=== PATIENT | male | born 1935 | race Caucasian/White ===

== ENCOUNTER → 2016-10-11 | Outpatient (CLI) | payer OTHER ==
[~2016-10-11] MED LIST: ADULT LOW DOSE81 M1; ASPIR-LOW81 MG PO; ATORVASTATIN CA40 MG PO; CARBIDOPA/LEVO1 EACH PO; COENZYME Q-10 PO; CONSTULOSE10 GM/15 M PO; DONEPEZIL HCL10 MG PO; GLIPIZIDE-METF1 EAC1 PO; JANUVIA PO; LIPITOR PO; LOPRESSOR50 MG PO; MAGNESIUM400 M1 PO; MAGOX PO; METOPROLOL PO; MIRALAX17 GM PO; MOTRIN800 MG PO; NEXIUM40 MG; OSTEO BI-FLEX1 EAC1 PO; OSTEO BI-FLEX1 EAC3 PO; Q-SORB CO Q-10100 MG PO; RANITIDINE; RANITIDINE PO; RENATABS TABLE1 EACH; THERALITH XR T1 EACH PO; TOPROL XL50 MG; VIIBRYD PO; VITAMIN B-6100 MG PO; ZOLOFT50 MG PO
== END | disposition home or self-care (01) ==
DX: R13.12 Dysphagia, oropharyngeal phase (principal); K21.9 Gastro-esophageal reflux disease without esophagitis; G20 Parkinson's disease
CPT/HCPCS: 92611 GN; G8996 GN; G8997 GN; G8998 GN

== ENCOUNTER 2016-10-19 11:05 | Emergency (ER) | payer OTHER ==
[~2016-10-19] VITALS: Ht 177.8 cm; Wt 71.8 kg
[2016-10-19 11:52] LABS: ADD MIUA? NO; BILIRUBIN NEGATIVE; BLOOD NEGATIVE; COLOR YELLOW ((YELLOW)); GLUCOSE (STRIP) >=500; KETONES 5; LEUKOCYTES NEGATIVE; NITRITE NEGATIVE; PROTEIN (STRIP) NEGATIVE; SPECIFIC GRAVITY 1.026 (1.000-1.030); UCUL ADDED? NO; UROBILINOGEN 0.2 MG/DL (0.2-1.0)
[2016-10-19 12:40] LABS: HEMATOCRIT 42.3 % (38.0-50.0); MCHC 31.9 G/DL (30.0-36.0); MCV 90.8 FL (86-99); MEAN PLAT.VOLUME 9.9 uM^3 (9.0-12.4); PLATELET COUNT 127 K/uL (156-360); RBC DIS.WIDTH-CV 14.3 % (11.8-14.6); RBC DIS.WIDTH-SD 47.9 % (39-53); RED BLOOD COUNT 4.66 M/uL (4.00-5.50); WHITE BLOOD COUNT 6.6 K/uL (4.1-10.2)
[2016-10-19 12:53] LABS: CHLORIDE 107 mEq/L (99-109); POTASSIUM 4.8 mEq/L (3.7-5.4); SODIUM 141 mEq/L (136-147)
[2016-10-19 12:54] LABS: GLUCOSE 102 mg/dL (70-99)
[2016-10-19 12:56] LABS: ANION GAP 6 MEQ/L (2-14)
[2016-10-19 12:58] LABS: GFR ESTIMATE (CALCULATED) > 59 mL/min/
[2016-10-19 12:59] LABS: UREA NITROGEN (BUN) 23 mg/dL (9-23)
[2016-10-19 14:36] VITALS: BP 156/88
== END 2016-10-19 14:25 | disposition home or self-care (01) ==
LOC: EME 11:05
PROVIDERS: Emergency Medicine
DX: E86.0 Dehydration (principal); Z91.81 History of falling; E78.5 Hyperlipidemia, unspecified; I10 Essential (primary) hypertension; Z87.442 Personal history of urinary calculi; K21.9 Gastro-esophageal reflux disease without esophagitis; Z95.1 Presence of aortocoronary bypass graft
CPT/HCPCS: 70450; 71020; 80048; 81003; 83605; 85027; 87086; 99281; 99285

== ENCOUNTER 2017-01-04 04:09 | Emergency (ER) | payer OTHER ==
[~2017-01-04] VITALS: Ht 175.3 cm; Wt 69.8 kg
[2017-01-04 04:45] LABS: BASOPHIL COUNT 0.1 K/uL (0-0.1); EOSINOPHIL (%) 2.3 % (0-5); EOSINOPHIL COUNT 0.2 K/uL (0-0.3); IMMATURE GRANULOCYTE (%) 0.5 % (0.0-0.7); IMMATURE GRANULOCYTE COUNT 0.1 K/uL; INSTRUMENT ABS NEUTROPHIL CT 6.2 K/uL; LYMPHOCYTE COUNT 2.1 K/uL (1.0-2.8); MCH 28.6 PG (29.0-34.0); MCHC 31.9 G/DL (30.0-36.0); MCV 89.6 FL (86-99); MEAN PLAT.VOLUME 9.4 uM^3 (9.0-12.4); MONOCYTE (%) 9.4 % (3-12); MONOCYTE COUNT 0.9 K/uL (0-0.8); NEUTROPHIL (%) 65.5 % (45-76); NEUTROPHIL COUNT 6.2 K/uL (1.8-6.4); PLATELET COUNT 131 K/uL (156-360); RBC DIS.WIDTH-CV 15.1 % (11.8-14.6); RBC DIS.WIDTH-SD 49.6 % (39-53); RED BLOOD COUNT 4.69 M/uL (4.00-5.50); WHITE BLOOD COUNT 9.5 K/uL (4.1-10.2)
[2017-01-04 04:54] LABS: CHLORIDE 104 mEq/L (99-109); POTASSIUM 3.7 mEq/L (3.7-5.4); SODIUM 140 mEq/L (136-147)
[2017-01-04 04:56] LABS: GLUCOSE 94 mg/dL (70-99)
[2017-01-04 04:58] LABS: ANION GAP 9 MEQ/L (2-14)
[2017-01-04 05:00] LABS: GFR ESTIMATE (CALCULATED) > 59 mL/min/
[2017-01-04 05:01] LABS: UREA NITROGEN (BUN) 20 mg/dL (9-23)
[2017-01-04 05:37] LABS: ADD MIUA? NO; BILIRUBIN NEGATIVE; BLOOD NEGATIVE; COLOR YELLOW ((YELLOW)); GLUCOSE (STRIP) >=500; KETONES NEGATIVE; LEUKOCYTES NEGATIVE; NITRITE NEGATIVE; PROTEIN (STRIP) NEGATIVE; SPECIFIC GRAVITY 1.014 (1.000-1.030); UCUL ADDED? NO; UROBILINOGEN 0.2 MG/DL (0.2-1.0)
[2017-01-04] MEDS ORDERED: METOPROLOL TART25 MG PO (06:15)
[2017-01-04 06:40] VITALS: BP 182/103
[2017-01-05] MEDS ORDERED: BENICAR20 MG PO (11:03)
[2017-01-05] MEDS ORDERED: WELLBUTRIN XL150 MG PO (11:04)
[2017-01-05] MEDS ORDERED: AMANTADINE100 MG PO (11:05)
[2017-01-05] MEDS ORDERED: CO Q-10100 MG PO (11:05)
[2017-01-05] MEDS ORDERED: SYNJARDY 12.5-1 EAC1 PO (11:06)
[2017-01-05] MEDS ORDERED: METOPROLOL TART25 MG PO (11:08)
== END 2017-01-04 06:41 | disposition home or self-care (01) ==
LOC: EME 04:09
PROVIDERS: Emergency Medicine
DX: S30.811A Abrasion of abdominal wall, initial encounter (principal); S09.90XA Unspecified injury of head, initial encounter; I10 Essential (primary) hypertension; W01.198A Fall on same level from slipping, tripping and stumbling with subsequent striking against other object, initial encounter; Y92.002 Bathroom of unspecified non-institutional (private) residence as the place of occurrence of the external cause; G20 Parkinson's disease; K21.9 Gastro-esophageal reflux disease without esophagitis; E78.5 Hyperlipidemia, unspecified; Z95.1 Presence of aortocoronary bypass graft; Z79.82 Long term (current) use of aspirin; Z87.442 Personal history of urinary calculi
CPT/HCPCS: 70450; 72125; 74176; 80048; 81003; 85025; 99281; 99285

== ENCOUNTER 2017-01-05 06:23 | Inpatient (IN) | payer OTHER ==
[~2017-01-05] VITALS: Ht 175.3 cm; Wt 68.1 kg
[~2017-01-05 06:23] MED LIST changes: +METOPROLOL TART25 MG PO
[2017-01-05 07:25] LABS: ADD MIUA? YES; BILIRUBIN NEGATIVE; BLOOD SMALL; COLOR STRAW ((YELLOW)); GLUCOSE (STRIP) >=500; KETONES NEGATIVE; LEUKOCYTES NEGATIVE; NITRITE NEGATIVE; PROTEIN (STRIP) NEGATIVE; SPECIFIC GRAVITY 1.011 (1.000-1.030); UROBILINOGEN 0.2 MG/DL (0.2-1.0)
[2017-01-05 07:27] LABS: BACTERIA NONE SEEN /HPF; EPITHELIAL CELLS NONE SEEN /HPF; MUCUS NONE SEEN /LPF; RED BLOOD CELLS 0-5 /HPF (0-5); WHITE BLOOD CELLS 0-5 /HPF (0-5)
[2017-01-05 07:36] LABS: EOSINOPHIL (%) 1.9 % (0-5); EOSINOPHIL COUNT 0.2 K/uL (0-0.3); HEMATOCRIT 42.5 % (38.0-50.0); IMMATURE GRANULOCYTE (%) 0.4 % (0.0-0.7); INSTRUMENT ABS NEUTROPHIL CT 5.7 K/uL; LYMPHOCYTE COUNT 1.7 K/uL (1.0-2.8); MCH 28.8 PG (29.0-34.0); MCHC 32.2 G/DL (30.0-36.0); MCV 89.3 FL (86-99); MONOCYTE (%) 8.6 % (3-12); MONOCYTE COUNT 0.7 K/uL (0-0.8); NEUTROPHIL (%) 67.8 % (45-76); NEUTROPHIL COUNT 5.7 K/uL (1.8-6.4); PLATELET COUNT 125 K/uL (156-360); RBC DIS.WIDTH-SD 49.3 % (39-53); RED BLOOD COUNT 4.76 M/uL (4.00-5.50); WHITE BLOOD COUNT 8.4 K/uL (4.1-10.2)
[2017-01-05 07:42] LABS: INTER. NORMALIZED RATIO 1.1; PROTHROMBIN TIME 11.7 SEC (10.2-12.9)
[2017-01-05 07:55] LABS: CHLORIDE 104 mEq/L (99-109); POTASSIUM 3.7 mEq/L (3.7-5.4); SODIUM 140 mEq/L (136-147)
[2017-01-05 07:57] LABS: GLUCOSE 91 mg/dL (70-99)
[2017-01-05 07:58] LABS: ANION GAP 10 MEQ/L (2-14)
[2017-01-05 08:01] LABS: GFR ESTIMATE (CALCULATED) > 59 mL/min/; UREA NITROGEN (BUN) 17 mg/dL (9-23)
[2017-01-05] MEDS ORDERED: BENICAR20 MG PO (11:03)
[2017-01-05] MEDS ORDERED: WELLBUTRIN XL150 MG PO (11:04)
[2017-01-05] MEDS ORDERED: CO Q-10100 MG PO (11:05)
[2017-01-05] MEDS ORDERED: AMANTADINE100 MG PO (11:05)
[2017-01-05] MEDS ORDERED: SYNJARDY 12.5-1 EAC1 PO (11:06)
[2017-01-05] MEDS ORDERED: METOPROLOL TART25 MG PO (11:08)
[2017-01-05 12:03] VITALS: BP 148/66
[2017-01-05 13:22] LABS: POINT-OF-CARE METER ID UU14162513
[2017-01-05 17:00] VITALS: BP 170/76
[2017-01-05 17:57] LABS: POINT-OF-CARE METER ID UU14162513
[2017-01-05 20:00] VITALS: BP 176/81
[2017-01-05 22:54] LABS: POINT-OF-CARE METER ID UU13113831
[2017-01-06] VITALS: BP 176/80
[2017-01-06 03:36] VITALS: BP 147/89
[2017-01-06 06:06] LABS: HEMATOCRIT 48.4 % (38.0-50.0); MCH 28.3 PG (29.0-34.0); MCHC 32.2 G/DL (30.0-36.0); MCV 87.8 FL (86-99); MEAN PLAT.VOLUME 10.3 uM^3 (9.0-12.4); PLATELET COUNT 162 K/uL (156-360); RBC DIS.WIDTH-CV 14.8 % (11.8-14.6); RBC DIS.WIDTH-SD 48.3 % (39-53); RED BLOOD COUNT 5.51 M/uL (4.00-5.50); WHITE BLOOD COUNT 18.5 K/uL (4.1-10.2)
[2017-01-06 06:27] LABS: ALKALINE PHOSPHATASE 98 IU/L (3-129); ANION GAP 13 MEQ/L (2-14); CHLORIDE 100 MEQ/L (99-109); GFR ESTIMATE (CALCULATED) > 59 mL/min/; POTASSIUM 3.1 MEQ/L (3.7-5.4); SAMPLE HEMOLYSIS CHECK 0; SAMPLE ICTERIC CHECK 0; SAMPLE LIPEMIA CHECK 0; SODIUM 139 MEQ/L (136-147); UREA NITROGEN (BUN) 18 mg/dL (9-23)
[2017-01-06 06:44] LABS: GLUCOSE 142 mg/dL (70-99)
[2017-01-06 07:25] VITALS: BP 133/67
[2017-01-06 12:31] LABS: POINT-OF-CARE METER ID UU13113831
[2017-01-06 17:15] LABS: POINT-OF-CARE METER ID UU13113831
[2017-01-06 19:30] VITALS: BP 147/77
[2017-01-06 22:45] LABS: POINT-OF-CARE METER ID UU13113831
[2017-01-06 23:45] VITALS: BP 163/71
[2017-01-07 08:01] VITALS: BP 176/74
[2017-01-07 11:39] VITALS: BP 167/72
[2017-01-07 11:46] LABS: ANION GAP 6 MEQ/L (2-14); CHLORIDE 102 MEQ/L (99-109); POTASSIUM 3.4 MEQ/L (3.7-5.4); SAMPLE HEMOLYSIS CHECK 0; SAMPLE ICTERIC CHECK 0; SAMPLE LIPEMIA CHECK 0; SODIUM 135 MEQ/L (136-147); TOTAL BILIRUBIN 0.9 MG/DL (0.0-1.0)
[2017-01-07 11:52] LABS: ALKALINE PHOSPHATASE 83 IU/L (3-129); GFR ESTIMATE (CALCULATED) > 59 mL/min/; GLUCOSE 115 mg/dL (70-99); UREA NITROGEN (BUN) 21 mg/dL (9-23)
[2017-01-07 13:13] LABS: POINT-OF-CARE METER ID UU14162513
[2017-01-07 13:32] LABS: HEMATOCRIT 43.6 % (38.0-50.0); MCH 28.2 PG (29.0-34.0); MCHC 32.1 G/DL (30.0-36.0); MCV 87.9 FL (86-99); MEAN PLAT.VOLUME 10.1 uM^3 (9.0-12.4); PLATELET COUNT 141 K/uL (156-360); RBC DIS.WIDTH-CV 14.9 % (11.8-14.6); RBC DIS.WIDTH-SD 48.2 % (39-53); RED BLOOD COUNT 4.96 M/uL (4.00-5.50); WHITE BLOOD COUNT 12.3 K/uL (4.1-10.2)
[2017-01-07 15:58] VITALS: BP 164/78
[2017-01-07 16:58] LABS: POINT-OF-CARE METER ID UU13113831
[2017-01-07 19:46] VITALS: BP 148/82
[2017-01-07 21:37] LABS: POINT-OF-CARE METER ID UU14162513
[2017-01-08] VITALS (7 sets, daily range): BP systolic 115–186; BP diastolic 72–88
[2017-01-08 08:10] LABS: POINT-OF-CARE METER ID UU14162513
[2017-01-08 10:08] LABS: MCH 29.7 PG (29.0-34.0); MCHC 33.4 G/DL (30.0-36.0); MCV 88.9 FL (86-99); MEAN PLAT.VOLUME 10.3 uM^3 (9.0-12.4); PLATELET COUNT 138 K/uL (156-360); RBC DIS.WIDTH-CV 14.7 % (11.8-14.6); RBC DIS.WIDTH-SD 48.2 % (39-53); RED BLOOD COUNT 4.61 M/uL (4.00-5.50); WHITE BLOOD COUNT 10.6 K/uL (4.1-10.2)
[2017-01-08 10:36] LABS: ALKALINE PHOSPHATASE 72 IU/L (3-129); ANION GAP 7 MEQ/L (2-14); CHLORIDE 103 MEQ/L (99-109); GFR ESTIMATE (CALCULATED) > 59 mL/min/; GLUCOSE 126 mg/dL (70-99); POTASSIUM 3.1 MEQ/L (3.7-5.4); SAMPLE HEMOLYSIS CHECK 0; SAMPLE ICTERIC CHECK 0; SAMPLE LIPEMIA CHECK 0; SODIUM 139 MEQ/L (136-147); TOTAL BILIRUBIN 0.8 MG/DL (0.0-1.0); UREA NITROGEN (BUN) 12 mg/dL (9-23)
[2017-01-08 12:33] LABS: POINT-OF-CARE METER ID UU14162513
[2017-01-08 17:29] LABS: POINT-OF-CARE METER ID UU14162513
[2017-01-08 22:56] LABS: POINT-OF-CARE METER ID UU13113831
[2017-01-09 00:16] VITALS: BP 181/83
[2017-01-09 04:05] VITALS: BP 178/81
[2017-01-09 05:50] LABS: HEMATOCRIT 40.7 % (38.0-50.0); MCH 28.4 PG (29.0-34.0); MCHC 32.4 G/DL (30.0-36.0); MCV 87.7 FL (86-99); PLATELET COUNT 143 K/uL (156-360); RBC DIS.WIDTH-CV 14.3 % (11.8-14.6); RBC DIS.WIDTH-SD 46.3 % (39-53); RED BLOOD COUNT 4.64 M/uL (4.00-5.50); WHITE BLOOD COUNT 10.5 K/uL (4.1-10.2)
[2017-01-09 06:18] LABS: ALKALINE PHOSPHATASE 73 IU/L (3-129); ANION GAP 9 MEQ/L (2-14); CHLORIDE 103 MEQ/L (99-109); GFR ESTIMATE (CALCULATED) > 59 mL/min/; POTASSIUM 3.3 MEQ/L (3.7-5.4); SAMPLE HEMOLYSIS CHECK 0; SAMPLE ICTERIC CHECK 0; SAMPLE LIPEMIA CHECK 0; SODIUM 138 MEQ/L (136-147); TOTAL BILIRUBIN 0.9 MG/DL (0.0-1.0); UREA NITROGEN (BUN) 10 mg/dL (9-23)
[2017-01-09 06:19] LABS: GLUCOSE 86 mg/dL (70-99)
[2017-01-09 07:45] VITALS: BP 150/77
[2017-01-09 12:44] VITALS: BP 147/107
[2017-01-09 16:06] VITALS: BP 175/78
[2017-01-09 17:26] LABS: POINT-OF-CARE METER ID UU13113700
[2017-01-09 21:40] LABS: POINT-OF-CARE METER ID UU14162513
[2017-01-10] VITALS (8 sets, daily range): BP systolic 149–187; BP diastolic 68–103
[2017-01-10 06:19] LABS: HEMATOCRIT 41.4 % (38.0-50.0); MCH 28.2 PG (29.0-34.0); MCHC 31.9 G/DL (30.0-36.0); MCV 88.5 FL (86-99); MEAN PLAT.VOLUME 10.2 uM^3 (9.0-12.4); PLATELET COUNT 149 K/uL (156-360); RBC DIS.WIDTH-CV 14.3 % (11.8-14.6); RBC DIS.WIDTH-SD 46.4 % (39-53); RED BLOOD COUNT 4.68 M/uL (4.00-5.50); WHITE BLOOD COUNT 8.5 K/uL (4.1-10.2)
[2017-01-10 06:44] LABS: ALKALINE PHOSPHATASE 79 IU/L (3-129); ANION GAP 9 MEQ/L (2-14); CHLORIDE 105 MEQ/L (99-109); GFR ESTIMATE (CALCULATED) > 59 mL/min/; GLUCOSE 82 mg/dL (70-99); POTASSIUM 3.4 MEQ/L (3.7-5.4); SAMPLE HEMOLYSIS CHECK 0; SAMPLE ICTERIC CHECK 0; SAMPLE LIPEMIA CHECK 0; SODIUM 140 MEQ/L (136-147); TOTAL BILIRUBIN 0.8 MG/DL (0.0-1.0); UREA NITROGEN (BUN) 11 mg/dL (9-23)
[2017-01-10 08:46] LABS: BICARBONATE 23.6 mEq/L (22-26); COMMENTS - BLOOD GASES C+; DEVICE RA; METHEMOGLOBIN 1.2 % (0-1.5); PCO2 31 mm Hg (35-45); PO2 59 mm Hg (80-100); SITE RR; TOTAL RESP RATE 18 resp/min; pH 7.49 (7.35-7.45)
[2017-01-10 17:59] LABS: POINT-OF-CARE METER ID UU14162513
[2017-01-10 21:05] LABS: POINT-OF-CARE METER ID UU13113700
[2017-01-11 03:29] VITALS: BP 173/79
[2017-01-11 06:08] LABS: HEMATOCRIT 41.8 % (38.0-50.0); MCHC 32.1 G/DL (30.0-36.0); MCV 87.4 FL (86-99); MEAN PLAT.VOLUME 9.9 uM^3 (9.0-12.4); PLATELET COUNT 150 K/uL (156-360); RBC DIS.WIDTH-CV 14.1 % (11.8-14.6); RBC DIS.WIDTH-SD 45.2 % (39-53); RED BLOOD COUNT 4.78 M/uL (4.00-5.50)
[2017-01-11 06:27] LABS: ANION GAP 8 MEQ/L (2-14); CHLORIDE 105 MEQ/L (99-109); GFR ESTIMATE (CALCULATED) > 59 mL/min/; GLUCOSE 88 mg/dL (70-99); POTASSIUM 3.4 MEQ/L (3.7-5.4); SAMPLE HEMOLYSIS CHECK 0; SAMPLE ICTERIC CHECK 0; SAMPLE LIPEMIA CHECK 0; SODIUM 138 MEQ/L (136-147); UREA NITROGEN (BUN) 12 mg/dL (9-23)
[2017-01-11 06:31] LABS: POINT-OF-CARE METER ID UU13113700
[2017-01-11 09:20] VITALS: BP 164/72
[2017-01-11 10:55] VITALS: BP 135/66
[2017-01-11 11:05] LABS: POINT-OF-CARE METER ID UU13113831
[2017-01-11 15:37] VITALS: BP 160/74
[2017-01-11 17:42] LABS: POINT-OF-CARE METER ID UU13113700
[2017-01-11 19:34] VITALS: BP 155/74
[2017-01-11 21:53] LABS: POINT-OF-CARE METER ID UU13113700
[2017-01-12 00:17] VITALS: BP 157/71
[2017-01-12 05:00] VITALS: BP 142/90
[2017-01-12 06:44] VITALS: BP 177/77
[2017-01-12 07:59] LABS: POINT-OF-CARE METER ID UU13113831
[2017-01-12 11:35] VITALS: BP 107/55
[2017-01-12 12:47] LABS: POINT-OF-CARE METER ID UU13113831
[2017-01-12] MEDS ORDERED: CARBIDOPA/LEVO1 EACH PO (14:08)
[2017-01-12] MEDS ORDERED: POLYETHYLENE GL17 GM PO (14:09)
[2017-01-12] MEDS ORDERED: DOCUSATE SODIU100 MG PO (14:09)
[2017-01-12] MEDS ORDERED: KLOR-CON M1010 MEQ PO (14:09)
[2017-01-12] MEDS ORDERED: PROTONIX40 MG PO (14:10)
[2017-01-12 16:12] VITALS: BP 122/59
== END 2017-01-12 16:51 | DRG 57 ==
LOC: EME 06:23 → EDOF 09:31 → 5WEST 09:31 → EDOF 09:31 → ENRESERV 09:48 → 5WEST 11:39 → ENPENDDIS 01-12 17:00
PROVIDERS: Emergency Medicine; Family Medicine; Internal Medicine
DX: G20 Parkinson's disease (principal); F02.80 Dementia in other diseases classified elsewhere, unspecified severity, without behavioral disturbance, psychotic disturbance, mood disturbance, and anxiety; R29.6 Repeated falls; K92.1 Melena; K56.41 Fecal impaction; G25.3 Myoclonus; R56.9 Unspecified convulsions; T42.8X5A Adverse effect of antiparkinsonism drugs and other central muscle-tone depressants, initial encounter; S20.412A Abrasion of left back wall of thorax, initial encounter; W19.XXXA Unspecified fall, initial encounter; Y92.009 Unspecified place in unspecified non-institutional (private) residence as the place of occurrence of the external cause; E87.6 Hypokalemia; K64.8 Other hemorrhoids; I25.10 Atherosclerotic heart disease of native coronary artery without angina pectoris; I10 Essential (primary) hypertension; E11.9 Type 2 diabetes mellitus without complications; E78.5 Hyperlipidemia, unspecified; E89.0 Postprocedural hypothyroidism; K21.9 Gastro-esophageal reflux disease without esophagitis; Z66 Do not resuscitate; F41.9 Anxiety disorder, unspecified; F32.9 Major depressive disorder, single episode, unspecified; Z79.84 Long term (current) use of oral hypoglycemic drugs; Z95.1 Presence of aortocoronary bypass graft; Z87.442 Personal history of urinary calculi; Z82.0 Family history of epilepsy and other diseases of the nervous system; Z80.0 Family history of malignant neoplasm of digestive organs
CPT/HCPCS: 36600; 70450; 71101; 72125; 74176; 80048; 80053; 81003; 82803; 82948; 85025; 85027; 85610; 90686; 93005; 95819; 97530 GP; 99281; 99285; G0378; G8978 CL; G8979 GP CK; G9033; J1815; S0028

== ENCOUNTER 2017-03-05 16:36 | Observation (INO) | payer OTHER ==
[~2017-03-05] VITALS: Ht 172.7 cm; Wt 67.3 kg
[~2017-03-05 16:36] MED LIST changes: +AMANTADINE100 MG PO; +BENICAR20 MG PO; +CO Q-10100 MG PO; +COLACE100 MG PO; +DOCUSATE SODIU100 MG PO; +KLOR-CON M1010 MEQ PO; +POLYETHYLENE GL17 GM PO; +PROTONIX40 MG PO; +SERTRALINE HCL25 MG PO; +SYNJARDY 12.5-1 EAC1 PO; +WELLBUTRIN XL150 MG PO
[2017-03-05 16:48] LABS: HEMATOCRIT 37.7 % (38.0-50.0); MCH 29.2 PG (29.0-34.0); MCHC 32.4 G/DL (30.0-36.0); MCV 90.2 FL (86-99); MEAN PLAT.VOLUME 9.4 uM^3 (9.0-12.4); PLATELET COUNT 148 K/uL (156-360); RBC DIS.WIDTH-SD 53.4 % (39-53); RED BLOOD COUNT 4.18 M/uL (4.00-5.50); WHITE BLOOD COUNT 6.3 K/uL (4.1-10.2)
[2017-03-05 16:55] LABS: CREATININE 0.9 mg/dL (0.6-1.3); POTASSIUM 3.7 mEq/L (3.7-5.4)
[2017-03-05 17:01] LABS: CHLORIDE 101 mEq/L (99-109); POTASSIUM 3.7 mEq/L (3.7-5.4); SODIUM 134 mEq/L (136-147)
[2017-03-05 17:03] LABS: GLUCOSE 106 mg/dL (70-99)
[2017-03-05 17:04] LABS: ANION GAP 6 MEQ/L (2-14)
[2017-03-05 17:07] LABS: GFR ESTIMATE (CALCULATED) > 59 mL/min/; TROP-I INTERPRETATION NEGATIVE; TROPONIN-I < 0.01 ng/mL (0.0-0.30)
[2017-03-05 17:08] LABS: UREA NITROGEN (BUN) 13 mg/dL (9-23)
[2017-03-05] MEDS ORDERED: ESCITALOPRAM OX20 MG PO (19:17)
[2017-03-05] MEDS ORDERED: OMEPRAZOLE20 MG PO (19:18)
[2017-03-05] MEDS ORDERED: NAMZARIC 14 MG1 EACH PO (19:21)
[2017-03-05] MEDS ORDERED: THERALITH XR T1 EACH PO (19:22)
[2017-03-05 23:41] VITALS: BP 167/79
[2017-03-06 04:15] VITALS: BP 166/86
[2017-03-06 08:12] VITALS: BP 160/80
[2017-03-06 12:01] VITALS: BP 140/62
[2017-03-06] MEDS ORDERED: SYNJARDY 5-5001 EACH PO (14:15)
[2017-03-06 15:24] VITALS: BP 150/71
[2017-03-06] MEDS ORDERED: LOPRESSOR25 MG PO (17:05)
[2017-03-06 18:10] VITALS: BP 132/64
== END 2017-03-06 19:36 | disposition home or self-care (01) ==
LOC: EME → EDBD 16:36 → EDOF 19:29 → 4EAST 19:29 → EDOF 19:29 → ENRESERV 19:45 → 4EAST 20:37
PROVIDERS: Emergency Medicine
DX: R00.1 Bradycardia, unspecified (principal); G20 Parkinson's disease; F03.90 Unspecified dementia, unspecified severity, without behavioral disturbance, psychotic disturbance, mood disturbance, and anxiety; E11.9 Type 2 diabetes mellitus without complications; K21.9 Gastro-esophageal reflux disease without esophagitis; Z79.82 Long term (current) use of aspirin; E78.5 Hyperlipidemia, unspecified; I10 Essential (primary) hypertension; Z95.1 Presence of aortocoronary bypass graft; Z90.49 Acquired absence of other specified parts of digestive tract
CPT/HCPCS: 71010; 80047; 80048; 83605; 83880; 84484; 85027; 93005; 99281; 99285; G0378; J0461

== ENCOUNTER 2017-06-15 10:46 | Inpatient (IN) | payer OTHER ==
[~2017-06-15] VITALS: Ht 175.3 cm; Wt 66.8 kg
[~2017-06-15 10:46] MED LIST changes: +ESCITALOPRAM OX20 MG PO; +LOPRESSOR25 MG PO; +NAMZARIC 14 MG1 EACH PO; +OMEPRAZOLE20 MG PO; +SYNJARDY 5-5001 EACH PO
[2017-06-15 11:27] LABS: BASOPHIL (%) 0.7 % (0-1); BASOPHIL COUNT 0.1 K/uL (0-0.1); EOSINOPHIL (%) 4.2 % (0-5); EOSINOPHIL COUNT 0.3 K/uL (0-0.3); HEMOGLOBIN 15.4 G/DL (12.5-16.6); IMMATURE GRANULOCYTE (%) 0.3 % (0.0-0.7); LYMPHOCYTE (%) 25.1 % (15-42); LYMPHOCYTE COUNT 1.7 K/uL (1.0-2.8); MCH 30.8 PG (29.0-34.0); MCHC 33.5 G/DL (30.0-36.0); MONOCYTE COUNT 0.4 K/uL (0-0.8); NEUTROPHIL (%) 63.7 % (45-76); NEUTROPHIL COUNT 4.4 K/uL (1.8-6.4); PLATELET COUNT 132 K/uL (156-360); RBC DIS.WIDTH-CV 14.4 % (11.8-14.6); RBC DIS.WIDTH-SD 48.6 % (39-53); WHITE BLOOD COUNT 6.9 K/uL (4.1-10.2)
[2017-06-15 11:35] LABS: CHLORIDE 103 mEq/L (99-109); POTASSIUM 4.1 mEq/L (3.7-5.4); SODIUM 137 mEq/L (136-147)
[2017-06-15 11:37] LABS: GLUCOSE 109 mg/dL (70-99)
[2017-06-15 11:40] LABS: CREATININE 0.9 mg/dL (0.6-1.3); GFR ESTIMATE (CALCULATED) > 59 mL/min/ (58.99-99999)
[2017-06-15 11:41] LABS: UREA NITROGEN (BUN) 19 mg/dL (9-23)
[2017-06-15 12:02] LABS: APPEARANCE CLEAR ((CLEAR)); BILIRUBIN NEGATIVE; BLOOD NEGATIVE; COLOR YELLOW ((YELLOW)); GLUCOSE (STRIP) >=500; KETONES NEGATIVE; LEUKOCYTES NEGATIVE; NITRITE NEGATIVE; PROTEIN (STRIP) NEGATIVE; SPECIFIC GRAVITY 1.017 (1.000-1.030); UCUL ADDED? NO; UROBILINOGEN 0.2 MG/DL (0.2-1.0)
[2017-06-15] MEDS ORDERED: LOPRESSOR25 MG PO (14:20)
[2017-06-15 18:01] VITALS: BP 151/70
[2017-06-15 23:54] VITALS: BP 180/80
[2017-06-16 04:29] VITALS: BP 165/72
[2017-06-16 08:55] VITALS: BP 119/75
[2017-06-16] MEDS ORDERED: DOCUSATE SODIU100 MG PO (13:16)
[2017-06-16 16:35] VITALS: BP 129/81
== END 2017-06-16 17:00 | disposition home health service (06) | DRG 57 ==
LOC: EME 10:46 → 5EAST 13:32 → EDOF 13:32 → ENRESERV 13:44 → EDOF 14:21 → 5EAST 17:37
PROVIDERS: Emergency Medicine
DX: G20 Parkinson's disease (principal); R62.7 Adult failure to thrive; R06.02 Shortness of breath; R53.1 Weakness; R00.1 Bradycardia, unspecified; E11.9 Type 2 diabetes mellitus without complications; I10 Essential (primary) hypertension; E78.5 Hyperlipidemia, unspecified; F03.90 Unspecified dementia, unspecified severity, without behavioral disturbance, psychotic disturbance, mood disturbance, and anxiety; I25.10 Atherosclerotic heart disease of native coronary artery without angina pectoris; I48.91 Unspecified atrial fibrillation; K21.9 Gastro-esophageal reflux disease without esophagitis; Z87.891 Personal history of nicotine dependence; Z95.1 Presence of aortocoronary bypass graft; Z79.82 Long term (current) use of aspirin
CPT/HCPCS: 70450; 71045; 80048; 81003; 85025; 93005; 99281; 99285; J1644; J7030

== ENCOUNTER 2017-06-23 13:09 | Inpatient (IN) | payer OTHER ==
[~2017-06-23] VITALS: Ht 177.8 cm; Wt 65.3 kg
[2017-06-23 14:59] LABS: APPEARANCE CLEAR ((CLEAR)); BILIRUBIN NEGATIVE; BLOOD NEGATIVE; COLOR AMBER ((YELLOW)); GLUCOSE (STRIP) >=500; KETONES NEGATIVE; LEUKOCYTES NEGATIVE; NITRITE NEGATIVE; PROTEIN (STRIP) NEGATIVE; SPECIFIC GRAVITY 1.036 (1.000-1.030); UCUL ADDED? NO; UROBILINOGEN 0.2 MG/DL (0.2-1.0)
[2017-06-23 15:04] LABS: BASOPHIL (%) 0.3 % (0-1); EOSINOPHIL (%) 1.4 % (0-5); EOSINOPHIL COUNT 0.1 K/uL (0-0.3); HEMATOCRIT 43.2 % (38.0-50.0); HEMOGLOBIN 14.6 G/DL (12.5-16.6); IMMATURE GRANULOCYTE (%) 0.3 % (0.0-0.7); LYMPHOCYTE (%) 20.5 % (15-42); LYMPHOCYTE COUNT 1.8 K/uL (1.0-2.8); MCH 30.4 PG (29.0-34.0); MCHC 33.8 G/DL (30.0-36.0); MONOCYTE (%) 6.3 % (3-12); MONOCYTE COUNT 0.5 K/uL (0-0.8); NEUTROPHIL (%) 71.2 % (45-76); NEUTROPHIL COUNT 6.2 K/uL (1.8-6.4); PLATELET COUNT 147 K/uL (156-360); RBC DIS.WIDTH-CV 14.4 % (11.8-14.6); RBC DIS.WIDTH-SD 47.6 % (39-53); WHITE BLOOD COUNT 8.6 K/uL (4.1-10.2)
[2017-06-23 15:15] LABS: CHLORIDE 105 mEq/L (99-109); POTASSIUM 3.9 mEq/L (3.7-5.4); SODIUM 137 mEq/L (136-147)
[2017-06-23 15:17] LABS: GLUCOSE 105 mg/dL (70-99)
[2017-06-23 15:21] LABS: CREATININE 0.8 mg/dL (0.6-1.3); GFR ESTIMATE (CALCULATED) > 59 mL/min/ (58.99-99999); UREA NITROGEN (BUN) 18 mg/dL (9-23)
[2017-06-23 16:37] LABS: PTT 29.8 SEC (25-37)
[2017-06-23 19:41] VITALS: BP 142/82
[2017-06-23] MEDS ORDERED: NAMZARIC 28 MG1 EACH PO (19:58)
[2017-06-23 22:56] VITALS: BP 165/79
[2017-06-24 04:40] LABS: HEMATOCRIT 40.8 % (38.0-50.0); HEMOGLOBIN 14.1 G/DL (12.5-16.6); MCH 30.9 PG (29.0-34.0); MCHC 34.6 G/DL (30.0-36.0); MCV 89.3 FL (86-99); PLATELET COUNT 139 K/uL (156-360); RBC DIS.WIDTH-CV 14.2 % (11.8-14.6); RBC DIS.WIDTH-SD 46.5 % (39-53); RED BLOOD COUNT 4.57 M/uL (4.00-5.50); WHITE BLOOD COUNT 7.2 K/uL (4.1-10.2)
[2017-06-24 05:04] LABS: CHLORIDE 105 mEq/L (99-109); POTASSIUM 3.6 mEq/L (3.7-5.4); SODIUM 137 mEq/L (136-147)
[2017-06-24 05:05] LABS: GLUCOSE 82 mg/dL (70-99)
[2017-06-24 05:09] LABS: CREATININE 0.7 mg/dL (0.6-1.3); GFR ESTIMATE (CALCULATED) > 59 mL/min/ (58.99-99999)
[2017-06-24 05:10] LABS: UREA NITROGEN (BUN) 15 mg/dL (9-23)
[2017-06-24 08:13] VITALS: BP 163/74
[2017-06-24 16:54] VITALS: BP 120/59; BP 165/78
[2017-06-24 19:41] VITALS: BP 170/81
[2017-06-25 00:23] VITALS: BP 164/85
[2017-06-25 04:21] VITALS: BP 162/90
[2017-06-25 05:49] LABS: HEMATOCRIT 42.4 % (38.0-50.0); HEMOGLOBIN 14.4 G/DL (12.5-16.6); MCH 30.5 PG (29.0-34.0); MCV 89.8 FL (86-99); PLATELET COUNT 115 K/uL (156-360); RBC DIS.WIDTH-CV 14.2 % (11.8-14.6); RED BLOOD COUNT 4.72 M/uL (4.00-5.50); WHITE BLOOD COUNT 9.6 K/uL (4.1-10.2)
[2017-06-25 07:40] VITALS: BP 142/83
[2017-06-25 12:13] VITALS: BP 127/72
[2017-06-25 16:00] VITALS: BP 148/79
[2017-06-25 19:45] VITALS: BP 158/83
[2017-06-26 00:08] VITALS: BP 144/77
[2017-06-26 03:44] VITALS: BP 141/96
[2017-06-26 08:05] VITALS: BP 173/76
[2017-06-26 12:07] VITALS: BP 144/78
[2017-06-26 17:00] VITALS: BP 129/82
[2017-06-26 20:02] VITALS: BP 158/78
[2017-06-27] VITALS: BP 167/80
[2017-06-27 05:07] VITALS: BP 170/78
[2017-06-27 08:10] VITALS: BP 160/80
[2017-06-27] MEDS ORDERED: ENDOCET 5-3251 EACH PO (08:40)
[2017-06-27] MEDS ORDERED: LOVENOX40 MG/0.4 SC (08:40)
[2017-06-27] MEDS ORDERED: LISINOPRIL5 MG PO (10:57)
[2017-06-27 11:41] VITALS: BP 112/70
[2017-06-27 12:00] VITALS: BP 112/70
== END 2017-06-27 15:49 | DRG 482 ==
LOC: EME 13:09 → EDOF 16:49 → 3EAST 16:49 → ENRESERV 16:50 → 3EAST 18:04
PROVIDERS: Emergency Medicine; Family Medicine; Internal Medicine; Orthopaedic Surgery
PROC: 0QH734Z Insertion of Internal Fixation Device into Left Upper Femur, Percutaneous Approach (ICD-10-PCS; principal; 2017-06-24)
DX: S72.032A Displaced midcervical fracture of left femur, initial encounter for closed fracture (principal); W19.XXXA Unspecified fall, initial encounter; G20 Parkinson's disease; F02.80 Dementia in other diseases classified elsewhere, unspecified severity, without behavioral disturbance, psychotic disturbance, mood disturbance, and anxiety; I48.2 Chronic atrial fibrillation; E11.9 Type 2 diabetes mellitus without complications; R00.1 Bradycardia, unspecified; I25.10 Atherosclerotic heart disease of native coronary artery without angina pectoris; Z95.1 Presence of aortocoronary bypass graft; I10 Essential (primary) hypertension; E78.5 Hyperlipidemia, unspecified; K21.9 Gastro-esophageal reflux disease without esophagitis; R27.0 Ataxia, unspecified; R29.6 Repeated falls; Z87.891 Personal history of nicotine dependence; Z91.81 History of falling; Z82.0 Family history of epilepsy and other diseases of the nervous system
CPT/HCPCS: 70450; 71045; 71046; 73501; 73502; 73552; 73700; 76000; 80048; 81003; 82948; 85025; 85027; 85610; 85730; 86850; 86900; 86901; 92523 GN; 92610 GN; 93005; 94002; 94799; 99281; 99285; A6214; C1713; G0515 GN; J0330; J0690; J1644; J1650; J1815; J2270; J2405; J2710; J3010; J7120

== ENCOUNTER → 2017-07-04 | Outpatient (CLI) | payer OTHER ==
[~2017-07-04] MED LIST changes: +ENDOCET 5-3251 EACH PO; +LISINOPRIL5 MG PO; +LOVENOX40 MG/0.4 SC; +NAMZARIC 28 MG1 EACH PO
== END ==
LOC: RAD 14:00
DX: R13.11 Dysphagia, oral phase (principal); Z87.19 Personal history of other diseases of the digestive system
CPT/HCPCS: 74230; 92611 GN; G8996 GN CJ; G8998 GN CJ

== ENCOUNTER 2017-08-12 08:56 | Inpatient (IN) | payer OTHER ==
[~2017-08-12] VITALS: Ht 175.3 cm; Wt 69.5 kg
[2017-08-12 10:03] LABS: BASOPHIL (%) 0.5 % (0-1); EOSINOPHIL (%) 1.8 % (0-5); EOSINOPHIL COUNT 0.1 K/uL (0-0.3); HEMATOCRIT 41.8 % (38.0-50.0); HEMOGLOBIN 14.3 G/DL (12.5-16.6); IMMATURE GRANULOCYTE (%) 0.3 % (0.0-0.7); LYMPHOCYTE COUNT 1.6 K/uL (1.0-2.8); MCH 31.6 PG (29.0-34.0); MCHC 34.2 G/DL (30.0-36.0); MCV 92.5 FL (86-99); MONOCYTE (%) 7.1 % (3-12); MONOCYTE COUNT 0.5 K/uL (0-0.8); NEUTROPHIL (%) 65.3 % (45-76); NEUTROPHIL COUNT 4.3 K/uL (1.8-6.4); PLATELET COUNT 146 K/uL (156-360); RBC DIS.WIDTH-CV 13.6 % (11.8-14.6); RBC DIS.WIDTH-SD 46.9 % (39-53); RED BLOOD COUNT 4.52 M/uL (4.00-5.50); WHITE BLOOD COUNT 6.5 K/uL (4.1-10.2)
[2017-08-12 10:11] LABS: ALBUMIN 3.5 g/dL (3.2-4.8); CHLORIDE 102 mEq/L (99-109); POTASSIUM 3.7 mEq/L (3.7-5.4); SODIUM 139 mEq/L (136-147)
[2017-08-12 10:14] LABS: GLUCOSE 86 mg/dL (70-99); TOTAL PROTEIN 5.8 g/dL (6.4-8.3)
[2017-08-12 10:16] LABS: TOTAL BILIRUBIN 0.5 mg/dL (0.0-1.0)
[2017-08-12 10:17] LABS: ALKALINE PHOSPHATASE 80 IU/L (3-129); CREATININE 0.7 mg/dL (0.6-1.3); GFR ESTIMATE (CALCULATED) > 59 mL/min/ (58.99-99999)
[2017-08-12 10:18] LABS: UREA NITROGEN (BUN) 13 mg/dL (9-23)
[2017-08-12 10:19] LABS: AST (GOT) 16 IU/L (2-34)
[2017-08-12 10:20] LABS: ALT (GPT) 14 IU/L (3-49)
[2017-08-12 10:23] LABS: TROP-I INTERPRETATION NEGATIVE; TROPONIN-I < 0.01 ng/mL (0.0-0.30)
[2017-08-12 13:26] LABS: PTT 29.2 SEC (25-37)
[2017-08-12 17:33] VITALS: BP 150/86
[2017-08-12 19:14] LABS: C DIFF TOXIN NEGATIVE (NEGATIVE)
[2017-08-12 21:02] VITALS: BP 101/63
[2017-08-13] VITALS (7 sets, daily range): BP systolic 92–138; BP diastolic 50–73
[2017-08-13 10:51] LABS: CHLORIDE 101 MEQ/L (99-109); GFR ESTIMATE (CALCULATED) > 59 mL/min/ (58.99-99999); GLUCOSE 101 mg/dL (70-99); POTASSIUM 3.6 MEQ/L (3.7-5.4); SODIUM 137 MEQ/L (136-147); UREA NITROGEN (BUN) 17 mg/dL (9-23)
[2017-08-13 10:52] LABS: TROP-I INTERPRETATION NEGATIVE; TROPONIN-I < 0.01 ng/mL (0.0-0.30)
[2017-08-14 05:00] VITALS: BP 105/54
[2017-08-14 05:31] LABS: HEMATOCRIT 40.7 % (38.0-50.0); HEMOGLOBIN 13.4 G/DL (12.5-16.6); MCH 30.5 PG (29.0-34.0); MCHC 32.9 G/DL (30.0-36.0); MCV 92.7 FL (86-99); PLATELET COUNT 166 K/uL (156-360); RBC DIS.WIDTH-CV 13.8 % (11.8-14.6); RBC DIS.WIDTH-SD 47.2 % (39-53); RED BLOOD COUNT 4.39 M/uL (4.00-5.50); WHITE BLOOD COUNT 8.7 K/uL (4.1-10.2)
[2017-08-14 05:45] LABS: CHLORIDE 101 MEQ/L (99-109); GFR ESTIMATE (CALCULATED) > 59 mL/min/ (58.99-99999); GLUCOSE 103 mg/dL (70-99); POTASSIUM 3.6 MEQ/L (3.7-5.4); SODIUM 137 MEQ/L (136-147); UREA NITROGEN (BUN) 24 mg/dL (9-23)
[2017-08-14 07:56] VITALS: BP 133/66
[2017-08-14 11:55] VITALS: BP 93/54
[2017-08-14 15:57] VITALS: BP 81/53
[2017-08-14 19:33] VITALS: BP 100/52
[2017-08-14 23:10] VITALS: BP 102/52
[2017-08-15 03:21] VITALS: BP 104/56
[2017-08-15 06:05] LABS: HEMATOCRIT 42.8 % (38.0-50.0); HEMOGLOBIN 14.1 G/DL (12.5-16.6); MCHC 32.9 G/DL (30.0-36.0); MCV 94.1 FL (86-99); PLATELET COUNT 165 K/uL (156-360); RBC DIS.WIDTH-CV 13.9 % (11.8-14.6); RBC DIS.WIDTH-SD 48.6 % (39-53); RED BLOOD COUNT 4.55 M/uL (4.00-5.50)
[2017-08-15 06:33] LABS: ALBUMIN 3.7 G/DL (3.2-4.8); ALKALINE PHOSPHATASE 66 IU/L (3-129); ALT (GPT) 5 IU/L (3-49); AST (GOT) 11 IU/L (2-34); CHLORIDE 99 MEQ/L (99-109); CREATININE 0.9 MG/DL (0.6-1.3); GFR ESTIMATE (CALCULATED) > 59 mL/min/ (58.99-99999); GLUCOSE 82 mg/dL (70-99); POTASSIUM 3.5 MEQ/L (3.7-5.4); SODIUM 138 MEQ/L (136-147); TOTAL BILIRUBIN 0.3 MG/DL (0.0-1.0); TOTAL PROTEIN 5.5 G/DL (6.4-8.3); UREA NITROGEN (BUN) 28 mg/dL (9-23)
[2017-08-15 07:49] VITALS: BP 122/74
[2017-08-15 11:31] VITALS: BP 100/59
[2017-08-15 16:22] VITALS: BP 114/56
[2017-08-15 19:49] VITALS: BP 95/53
[2017-08-15 23:33] VITALS: BP 100/54
[2017-08-16 03:39] VITALS: BP 98/51
[2017-08-16 06:43] LABS: HEMATOCRIT 40.8 % (38.0-50.0); HEMOGLOBIN 13.4 G/DL (12.5-16.6); MCH 30.9 PG (29.0-34.0); MCHC 32.8 G/DL (30.0-36.0); MCV 94.2 FL (86-99); PLATELET COUNT 138 K/uL (156-360); RBC DIS.WIDTH-CV 13.8 % (11.8-14.6); RBC DIS.WIDTH-SD 47.7 % (39-53); RED BLOOD COUNT 4.33 M/uL (4.00-5.50); WHITE BLOOD COUNT 8.5 K/uL (4.1-10.2)
[2017-08-16 07:14] LABS: ALBUMIN 3.4 G/DL (3.2-4.8); ALKALINE PHOSPHATASE 66 IU/L (3-129); ALT (GPT) 8 IU/L (3-49); AST (GOT) 13 IU/L (2-34); CHLORIDE 100 MEQ/L (99-109); CREATININE 0.9 MG/DL (0.6-1.3); GFR ESTIMATE (CALCULATED) > 59 mL/min/ (58.99-99999); GLUCOSE 89 mg/dL (70-99); POTASSIUM 3.9 MEQ/L (3.7-5.4); SODIUM 138 MEQ/L (136-147); TOTAL BILIRUBIN 0.4 MG/DL (0.0-1.0); TOTAL PROTEIN 5.4 G/DL (6.4-8.3); UREA NITROGEN (BUN) 28 mg/dL (9-23)
[2017-08-16 07:41] VITALS: BP 100/70
[2017-08-16 11:10] VITALS: BP 104/62
[2017-08-16] MEDS ORDERED: ELIQUIS5 MG PO (15:09)
[2017-08-16 15:55] VITALS: BP 157/78
== END 2017-08-16 18:29 | disposition home health service (06) | DRG 176 ==
LOC: EME 08:56 → 4EAST 13:59 → 3EAST 13:59 → EDOF 13:59 → ENRESERV 14:00 → 4EAST 17:06 → ENRESERV 08-14 11:14 → 3EAST 08-14 15:32
PROVIDERS: Emergency Medicine; Family Medicine; Internal Medicine; Internal Medicine Cardiovascular Disease
DX: I27.82 Chronic pulmonary embolism (principal); I11.0 Hypertensive heart disease with heart failure; I50.32 Chronic diastolic (congestive) heart failure; E11.9 Type 2 diabetes mellitus without complications; G25.3 Myoclonus; G20 Parkinson's disease; F02.80 Dementia in other diseases classified elsewhere, unspecified severity, without behavioral disturbance, psychotic disturbance, mood disturbance, and anxiety; I48.2 Chronic atrial fibrillation; I25.10 Atherosclerotic heart disease of native coronary artery without angina pectoris; E78.5 Hyperlipidemia, unspecified; K21.9 Gastro-esophageal reflux disease without esophagitis; F41.9 Anxiety disorder, unspecified; F32.9 Major depressive disorder, single episode, unspecified; Z87.891 Personal history of nicotine dependence; Z95.1 Presence of aortocoronary bypass graft; Z87.442 Personal history of urinary calculi; Z79.84 Long term (current) use of oral hypoglycemic drugs
CPT/HCPCS: 71046; 71275; 80048; 80053; 83605; 83880; 84484; 85025; 85027; 85610; 85730; 87040; 87493; 93005; 99281; 99285; A6214; J1940; J7030

== ENCOUNTER 2017-09-01 11:26 | Emergency (ER) | payer OTHER ==
[~2017-09-01] VITALS: Ht 172.7 cm; Wt 68.1 kg
[~2017-09-01 11:26] MED LIST changes: +ELIQUIS5 MG PO
[2017-09-01 13:34] LABS: HEMATOCRIT 40.6 % (38.0-50.0); HEMOGLOBIN 13.7 G/DL (12.5-16.6); MCH 31.5 PG (29.0-34.0); MCHC 33.7 G/DL (30.0-36.0); MCV 93.3 FL (86-99); PLATELET COUNT 171 K/uL (156-360); RBC DIS.WIDTH-CV 14.2 % (11.8-14.6); RBC DIS.WIDTH-SD 48.3 % (39-53); RED BLOOD COUNT 4.35 M/uL (4.00-5.50); WHITE BLOOD COUNT 9.3 K/uL (4.1-10.2)
[2017-09-01 13:42] LABS: INTER. NORMALIZED RATIO 1.3
[2017-09-01 13:44] LABS: PTT 29.9 SEC (25-37)
[2017-09-01 13:56] LABS: APPEARANCE CLEAR ((CLEAR)); BILIRUBIN NEGATIVE; BLOOD NEGATIVE; COLOR AMBER ((YELLOW)); GLUCOSE (STRIP) >=500; KETONES 5; LEUKOCYTES NEGATIVE; NITRITE NEGATIVE; PROTEIN (STRIP) 30; SPECIFIC GRAVITY 1.027 (1.000-1.030); UCUL ADDED? NO; UROBILINOGEN 0.2 MG/DL (0.2-1.0)
[2017-09-01 14:06] LABS: TROP-I INTERPRETATION NEGATIVE; TROPONIN-I < 0.01 ng/mL (0.0-0.30)
[2017-09-01 14:11] LABS: ALBUMIN 3.3 G/DL (3.2-4.8); ALKALINE PHOSPHATASE 61 IU/L (3-129); ALT (GPT) 4 IU/L (3-49); AST (GOT) 32 IU/L (2-34); CHLORIDE 103 MEQ/L (99-109); CREATININE 0.7 MG/DL (0.6-1.3); GFR ESTIMATE (CALCULATED) > 59 mL/min/ (58.99-99999); GLUCOSE 99 mg/dL (70-99); POTASSIUM 4.2 MEQ/L (3.7-5.4); SODIUM 136 MEQ/L (136-147); TOTAL BILIRUBIN 0.5 MG/DL (0.0-1.0); TOTAL PROTEIN 5.7 G/DL (6.4-8.3); UREA NITROGEN (BUN) 16 mg/dL (9-23)
[2017-09-01 14:24] LABS: THYROTROPIN (TSH) 1.6 MIU/L (0.4-5.5)
[2017-09-01] MEDS ORDERED: CIPRO500 MG PO (14:37)
[2017-09-01 16:23] VITALS: BP 144/76
== END 2017-09-01 16:23 | disposition home or self-care (01) ==
LOC: EME 11:26
PROVIDERS: Emergency Medicine Emergency Medical Services
DX: R19.7 Diarrhea, unspecified (principal); E86.0 Dehydration; I48.2 Chronic atrial fibrillation; R41.82 Altered mental status, unspecified; R94.31 Abnormal electrocardiogram [ECG] [EKG]; I10 Essential (primary) hypertension; E11.9 Type 2 diabetes mellitus without complications; K21.9 Gastro-esophageal reflux disease without esophagitis; E78.5 Hyperlipidemia, unspecified; G20 Parkinson's disease; F41.9 Anxiety disorder, unspecified; F32.9 Major depressive disorder, single episode, unspecified; Z87.891 Personal history of nicotine dependence; Z85.9 Personal history of malignant neoplasm, unspecified; Z87.442 Personal history of urinary calculi
CPT/HCPCS: 70450; 71045; 80053; 81003; 83605; 83880; 84443; 84484; 85027; 85610; 85730; 87040; 93005; 99281; 99285; J7040

== ENCOUNTER 2017-10-07 12:21 | Emergency (ER) | payer OTHER ==
[~2017-10-07] VITALS: Ht 170.2 cm; Wt 60.9 kg
[~2017-10-07 12:21] MED LIST changes: +CIPRO500 MG PO
[2017-10-07 13:41] LABS: BASOPHIL (%) 0.5 % (0-1); EOSINOPHIL (%) 1.5 % (0-5); EOSINOPHIL COUNT 0.1 K/uL (0-0.3); HEMATOCRIT 43.4 % (38.0-50.0); HEMOGLOBIN 14.5 G/DL (12.5-16.6); IMMATURE GRANULOCYTE (%) 0.3 % (0.0-0.7); LYMPHOCYTE (%) 26.5 % (15-42); LYMPHOCYTE COUNT 1.9 K/uL (1.0-2.8); MCH 31.2 PG (29.0-34.0); MCHC 33.4 G/DL (30.0-36.0); MCV 93.3 FL (86-99); MONOCYTE (%) 6.1 % (3-12); MONOCYTE COUNT 0.5 K/uL (0-0.8); NEUTROPHIL (%) 65.1 % (45-76); NEUTROPHIL COUNT 4.8 K/uL (1.8-6.4); PLATELET COUNT 120 K/uL (156-360); RBC DIS.WIDTH-CV 13.2 % (11.8-14.6); RBC DIS.WIDTH-SD 45.1 % (39-53); RED BLOOD COUNT 4.65 M/uL (4.00-5.50); WHITE BLOOD COUNT 7.3 K/uL (4.1-10.2)
[2017-10-07 13:49] LABS: ALBUMIN 3.5 g/dL (3.2-4.8); CHLORIDE 100 mEq/L (99-109); POTASSIUM 4.4 mEq/L (3.7-5.4); SODIUM 136 mEq/L (136-147)
[2017-10-07 13:52] LABS: GLUCOSE 82 mg/dL (70-99); TOTAL PROTEIN 5.8 g/dL (6.4-8.3)
[2017-10-07 13:53] LABS: TOTAL BILIRUBIN 0.6 mg/dL (0.0-1.0)
[2017-10-07 13:55] LABS: ALKALINE PHOSPHATASE 76 IU/L (3-129); CREATININE 0.8 mg/dL (0.6-1.3); GFR ESTIMATE (CALCULATED) > 59 mL/min/ (58.99-99999)
[2017-10-07 13:56] LABS: UREA NITROGEN (BUN) 19 mg/dL (9-23)
[2017-10-07 13:57] LABS: AST (GOT) 17 IU/L (2-34)
[2017-10-07 13:58] LABS: ALT (GPT) 9 IU/L (3-49)
[2017-10-07 14:01] LABS: TROP-I INTERPRETATION NEGATIVE; TROPONIN-I < 0.01 ng/mL (0.0-0.30)
[2017-10-07 14:17] LABS: APPEARANCE CLEAR ((CLEAR)); BILIRUBIN NEGATIVE; BLOOD SMALL; COLOR AMBER ((YELLOW)); GLUCOSE (STRIP) 150; KETONES 5; LEUKOCYTES NEGATIVE; NITRITE NEGATIVE; PROTEIN (STRIP) NEGATIVE; SPECIFIC GRAVITY 1.019 (1.000-1.030); UROBILINOGEN 0.2 MG/DL (0.2-1.0)
[2017-10-07 14:27] LABS: BACTERIA NONE SEEN /HPF; EPITHELIAL CELLS RARE /HPF; HYALINE CASTS 0-5 /LPF; MUCUS 4+ /LPF; UCUL ADDED? YES
[2017-10-07] MEDS ORDERED: BACTRIM,SEPT1 TABLET PO (15:35)
[2017-10-07 16:50] VITALS: BP 177/97
== END 2017-10-07 16:58 | disposition home or self-care (01) ==
LOC: EME 12:21
PROVIDERS: Emergency Medicine
DX: G20 Parkinson's disease (principal); N39.0 Urinary tract infection, site not specified; I10 Essential (primary) hypertension; K21.9 Gastro-esophageal reflux disease without esophagitis; E78.5 Hyperlipidemia, unspecified; E11.9 Type 2 diabetes mellitus without complications; F41.9 Anxiety disorder, unspecified; F32.9 Major depressive disorder, single episode, unspecified; Z87.891 Personal history of nicotine dependence; Z87.442 Personal history of urinary calculi; Z95.1 Presence of aortocoronary bypass graft; Z90.49 Acquired absence of other specified parts of digestive tract; Z79.82 Long term (current) use of aspirin
CPT/HCPCS: 70450; 71045; 80053; 81003; 82948; 83605; 84484; 85025; 87086; 93005; 99281; 99285; J7030

== ENCOUNTER 2017-10-11 19:15 | Emergency (ER) | payer OTHER ==
[~2017-10-11] VITALS: Ht 170.2 cm; Wt 68.1 kg
[~2017-10-11 19:15] MED LIST changes: +BACTRIM,SEPT1 TABLET PO
[2017-10-11 19:58] LABS: HEMATOCRIT 41.9 % (38.0-50.0); HEMOGLOBIN 14.4 G/DL (12.5-16.6); MCH 31.3 PG (29.0-34.0); MCHC 34.4 G/DL (30.0-36.0); MCV 91.1 FL (86-99); PLATELET COUNT 151 K/uL (156-360); RBC DIS.WIDTH-CV 13.2 % (11.8-14.6); RBC DIS.WIDTH-SD 44.3 % (39-53); WHITE BLOOD COUNT 7.8 K/uL (4.1-10.2)
[2017-10-11 20:06] LABS: CHLORIDE 101 mEq/L (99-109)
[2017-10-11 20:07] LABS: POTASSIUM 4.1 mEq/L (3.7-5.4); SODIUM 134 mEq/L (136-147)
[2017-10-11 20:08] LABS: GLUCOSE 140 mg/dL (70-99)
[2017-10-11 20:12] LABS: GFR ESTIMATE (CALCULATED) > 59 mL/min/ (58.99-99999)
[2017-10-11 20:13] LABS: UREA NITROGEN (BUN) 15 mg/dL (9-23)
[2017-10-11 20:18] LABS: TROP-I INTERPRETATION NEGATIVE; TROPONIN-I 0.01 ng/mL (0.0-0.30)
[2017-10-11 21:51] LABS: APPEARANCE CLEAR ((CLEAR)); BILIRUBIN NEGATIVE; BLOOD NEGATIVE; COLOR AMBER ((YELLOW)); GLUCOSE (STRIP) >=500; KETONES NEGATIVE; LEUKOCYTES NEGATIVE; NITRITE NEGATIVE; PROTEIN (STRIP) NEGATIVE; SPECIFIC GRAVITY 1.025 (1.000-1.030); UCUL ADDED? NO; UROBILINOGEN 0.2 MG/DL (0.2-1.0)
[2017-10-11 22:44] LABS: C DIFF TOXIN NEGATIVE (NEGATIVE)
[2017-10-11 23:57] VITALS: BP 168/97
== END 2017-10-12 00:57 | disposition home or self-care (01) ==
LOC: EME → EDBD 19:15 → EME 19:15
PROVIDERS: Emergency Medicine
DX: E86.0 Dehydration (principal); R07.9 Chest pain, unspecified; R19.7 Diarrhea, unspecified; G20 Parkinson's disease; F03.90 Unspecified dementia, unspecified severity, without behavioral disturbance, psychotic disturbance, mood disturbance, and anxiety; F80.9 Developmental disorder of speech and language, unspecified; I48.91 Unspecified atrial fibrillation; I10 Essential (primary) hypertension; Z95.1 Presence of aortocoronary bypass graft; E11.9 Type 2 diabetes mellitus without complications; Z79.84 Long term (current) use of oral hypoglycemic drugs; Z79.82 Long term (current) use of aspirin; Z90.49 Acquired absence of other specified parts of digestive tract; Z87.440 Personal history of urinary (tract) infections; Z87.891 Personal history of nicotine dependence
CPT/HCPCS: 71045; 80048; 81003; 84484; 85027; 87493; 93005; 99281; 99285; J7040